=== PATIENT | male | born 1960 | race Caucasian/White ===

== ENCOUNTER 2021-04-09 17:09 | Outpatient (REF) | payer MEDICARE, SELFPAY ==
[2021-04-09 20:34] LABS: HGB 12.9 g/dL (13.5-17.5); MCH 38.2 pg (27.0-33.0); MCHC 35.8 % (32.0-36.0); MCV 106.5 fL (80-95); MPV 10.6 fL (8.0-11.0); Platelet Count 128 10^3/uL (130-400); RBC 3.38 10^6/uL (4.36-5.78); RDW 14.3 % (11.8-14.1); RDW-SD 55.3 fL
[2021-04-09 21:03] LABS: ALT 27 U/L (16-63); AST 20 U/L (15-37); Alkaline Phosphatase 126 U/L (46-116); Anion Gap 8.4 mmol/L (3-11); BUN 18 mg/dL (7-18); CO2 28.6 mmol/L (21.0-32.0); CREATININE 0.8 mg/dL (0.70-1.30); Calcium 8.8 mg/dL (8.5-10.1); Calculated LDL 88 mg/dL (<100); Chloride 103 mmol/L (98-107); Cholesterol 149 mg/dL (<200); Glucose 131 mg/dL (74-106); HDL Cholesterol 40 mg/dL (40-60); Potassium 4.1 mmol/L (3.5-5.1); Sodium 140 mmol/L (136-145); TSH 2.44 uIU/mL (0.36-3.74); Triglyceride 107 mg/dL (<150)
[2021-04-09 21:09] LABS: Abs Immature Grans 0.03 10^3/uL (0.0-0.06); Absolute Basophil Count 0.03 10^3/uL (0.0-0.2); Absolute Eosinophil Count 0.18 10^3/uL (0.0-0.7); Absolute Lymphocyte Count 1.34 10^3/uL (1.2-3.4); Absolute Monocyte Count 0.31 10^3/uL (0.1-0.8); Absolute Neutrophil Count 3.73 10^3/uL (1.2-6.7); Basophils % 0.5; Eosinophils % 3.2; Immature Grans % 0.5; Lymphocytes % 23.8; Monocytes % 5.5; Neutrophils % 66.5; Nucleated RBC 0 %
== END 2021-04-09 17:10 | disposition home or self-care (01) ==
LOC: LBN 17:09
PROVIDERS: PCP Nurse Practitioner Adult Health; Visit Provider Nurse Practitioner Family
DX: F41.8 Other specified anxiety disorders (principal); I10 Essential (primary) hypertension; R53.83 Other fatigue
CPT/HCPCS: 80053; 80061; 85027; 84443; 85025

== ENCOUNTER 2021-06-12 19:15 | Outpatient (REF) | payer MEDICARE, SELFPAY ==
[2021-06-12 15:10] LABS: Abs Immature Grans 0.03 10^3/uL (0.0-0.06); Absolute Basophil Count 0.02 10^3/uL (0.0-0.2); Absolute Eosinophil Count 0.22 10^3/uL (0.0-0.7); Absolute Lymphocyte Count 1.19 10^3/uL (1.2-3.4); Absolute Monocyte Count 0.25 10^3/uL (0.1-0.8); Absolute Neutrophil Count 3.42 10^3/uL (1.2-6.7); Basophils % 0.4; Eosinophils % 4.3; HCT 30.8 % (40.0-50.0); Immature Grans % 0.6; Lymphocytes % 23.2; MCH 40.7 pg (27.0-33.0); MCHC 35.7 % (32.0-36.0); MCV 114.1 fL (80-95); MPV 11.6 fL (8.0-11.0); Monocytes % 4.9; Neutrophils % 66.6; Platelet Count 140 10^3/uL (130-400); RDW 16.9 % (11.8-14.1); RDW-SD 70.9 fL; WBC 5.13 10^3/uL (4.4-10.8)
[2021-06-12 15:25] LABS: Iron 100 ug/dL (65-175); Total Iron Binding Capacity 274 ug/dL (250-450); Transferrin Sat 36 % (20-55)
[2021-06-12 15:50] LABS: ALT 24 U/L (16-63); AST 22 U/L (15-37); Albumin 3.8 g/dL (3.4-5.0); Alkaline Phosphatase 128 U/L (46-116); Anion Gap 5.6 mmol/L (3-11); BUN 19 mg/dL (7-18); Bilirubin, Total 0.7 mg/dL (0.2-1.0); CO2 28.4 mmol/L (21.0-32.0); CREATININE 0.8 mg/dL (0.70-1.30); Calcium 8.3 mg/dL (8.5-10.1); Chloride 104 mmol/L (98-107); Glucose 205 mg/dL (74-106); Potassium 4.1 mmol/L (3.5-5.1); Sodium 138 mmol/L (136-145); Total Protein 6.2 g/dL (6.4-8.2)
[2021-06-12 15:52] LABS: Folate > 20.0 ng/mL (8.6-20.0); Vitamin B12 < 80 pg/mL (193-986)
[2021-06-12 16:15] LABS: NT-proBNP 82 pg/mL (<300)
[2021-06-12 16:23] LABS: Anisocytosis 1+; Diff Comment RBC Morph Reviewed
[2021-06-12 16:24] LABS: Basophilic Stippling 1+; Macrocytosis 3+; Polychromasia Present
[2021-06-13 10:08] LABS: HIV-1/2 Ag & Ab Screen Negative (Negative)
== END 2021-06-12 19:16 | disposition home or self-care (01) ==
LOC: NCHCN 19:15
PROVIDERS: Nurse Practitioner Family; PCP Nurse Practitioner Adult Health; Visit Provider Family Medicine
DX: D64.9 Anemia, unspecified (principal); R53.83 Other fatigue; R27.8 Other lack of coordination; R06.09 Other forms of dyspnea; I45.10 Unspecified right bundle-branch block; Z11.4 Encounter for screening for human immunodeficiency virus [HIV]
CPT/HCPCS: 80053; 87389; 82607; 82746; 83540; 83550; 83880; 85025

== ENCOUNTER 2021-07-01 01:39 | Outpatient (CLI) | payer MEDICARE, SELFPAY ==
--- NOTE | 2021-07-01 | DI.NM_ITS ---
APPROVED REPORT Exam: Exercise Treadmill Patient Location: Out-Patient Room/Bed: Stress Nurse: Lupe Mccall RN Ordering Provider:CARIE ELLY, Contact Number: [phone] BMI: 32.77 Baseline Rhythm: Sinus Rhythm Comment: RBBB and LAFB Indications: Dyspnea on exertion, Right Bundle Branch Block Medical History Medical History: Hypertension (history of), smoker (former), glaucoma Cardiac Medications: Timolol Allergies: NKA Cardiac Risk Factors: Hypertension (history of), smoker (former), family hx Previous Cardiac Procedures: None Pretest Chest Pain Characteristics: None Exercise History: Physically active Physical Disabilities: None Lung Sounds: Clear to auscultation Heart Sounds: Regular Stress Test Details Test: Exercise stress testing was performed using a Marcell protocol. Nuclear Acquisition: Rest Tc-99m/Stress Tc-99m 1 day Rest Isotope: Tc-99m Sestamibi. Dose: 10.6 Date: 07/01/2021 Injection Time: 0915 Stress Isotope: Tc-99m Sestamibi. Dose: 33.5 Date: 07/01/2021 Injection Time: 1122 HR Resting HR Supine: 62 bpm Max Heart Rate (APMHR): 158.500354 bpm Resting HR Standin bpm Target HR (85% APMHR): 134.000927 bpm Max HR Achieved: 145 bpm % of APMHR: 91.77 Recovery HR: 79 bpm HR response to stress: Normal HR response to stress Comment: Timolol held for 12 hrs prior to testing BP Resting BP Supine: 144/78 mmHg Resting BP Standin/70 mmHg Max BP: 212/80 mmHg Recovery BP: 140/72 mmHg BP response to stress: Abnormal hypertensive response to stress. ECG Resting ECG: Sinus Rhythm, RBBB and LAFB Ectopy: None Stress ECG: Sinus Tachycardia, RBBB and LAFB ST Change: No significant ST segment changes noted Arrhythmia: None Recovery ECG: Sinus Rhythm, RBBB and LAFB Recovery ST Change: No significant ST segment changes noted Recovery Arrhythmia: Rare PAC Clinical Reason for Termination: Fatigue, Dyspnea Stress Symptoms: General Fatigue, Dyspnea Exercise duration: 2 min58 sec Highest Stage Reached: Stage 1: 1.7 mph at 10% grade. Exercise capacity: 4.64 METs Angina Score: None Bonner Treadmill Score: 1.1 Rate Pressure Product: [id number] Stress ECG Conclusion 1. The resting electrocardiogram showed right bundle branch block and left anterior fascicular block 2. Patient exercised on the Marcell protocol and completed a workload of 4.64 METS, stopping due to fat igue and shortness of breath 3. Normal blood pressure response to exercise. Rapid heart rate response to exercise suggests decond itioning. Patient achieved 91% of predicted heart rate for age 4. The electrocardiographic portion of the test showed no evidence of myocardial ischemia 5. See MPI report Bonner Treadmill Score is 1.1 which is Moderate risk. Stress Test Summary STAGE Time (mins) Speed (mph) Grade (%) HR BP SYMPTOMS METS Supine 62 144/78 Standing 62 142/70 SpO2 98% 1 3 1.7 10 143 182/84 Moderate SOB, SpO2 96% 4.6 1 min recovery 112 212/80 SOB resolved, SpO2 97% 3 min recovery 79 198/86 SpO2 98% 6 min recovery 79 140/72 SpO2 98% MPI Conclusion Normal myocardial perfusion without ischemia or prior infarction EF 61%, normal wall motion Radiologist Interpretation Radiologist Interpretation by: Romario Nixon MD Interpretation Date/Time: 07/04/2021 13:45:07
--- NOTE | 2021-07-01 18:20 | DI.RAD_ITS ---
Exam(s) XR CHEST 2V PA LATERAL EXAM: XR CHEST 2V PA LATERAL CLINICAL HISTORY: DYSPNEA ON EXERTION, R06.09, RT BUNDLE BRANCH BLOCK, I45.10 TECHNIQUE: 2D digital imaging was performed of the chest. Two images were obtained. PA and lateral views were obtained. COMPARISON: CR CHEST 2 VIEWS PA,LAT from 02/16/2012 FINDINGS: MEDIASTINUM: Normal. HEART: Normal. PULMONARY VASCULATURE: Normal. LUNGS: Clear. PLEURAL SPACE: No pleural effusion or pneumothorax. BONE:Within normal limits for the patient's age. OTHER FINDINGS:Normal. IMPRESSION: No acute pulmonary findings. DATA REPOSITORY: RADIATION DOSE DELIVERED:
== END 2021-07-01 01:59 ==
PROVIDERS: PCP Nurse Practitioner Adult Health; Visit Provider Nurse Practitioner Family
DX: R06.09 Other forms of dyspnea (principal); I45.10 Unspecified right bundle-branch block
CPT/HCPCS: 78452; 93016; 93018; 71046; 93017

== ENCOUNTER 2021-11-15 11:18 | Outpatient (REF) | payer MEDICARE, SELFPAY ==
[2021-11-15 14:52] LABS: Abs Immature Grans 0.03 10^3/uL (0.0-0.06); Absolute Basophil Count 0.06 10^3/uL (0.0-0.2); Absolute Eosinophil Count 0.15 10^3/uL (0.0-0.7); Absolute Lymphocyte Count 1.29 10^3/uL (1.2-3.4); Absolute Monocyte Count 0.59 10^3/uL (0.1-0.8); Absolute Neutrophil Count 6.42 10^3/uL (1.2-6.7); Basophils % 0.7; Eosinophils % 1.8; HCT 45.8 % (40.0-50.0); HGB 15.5 g/dL (13.5-17.5); Immature Grans % 0.4; Lymphocytes % 15.1; MCH 29.1 pg (27.0-33.0); MCHC 33.8 % (32.0-36.0); MCV 86 fL (80-95); MPV 11.3 fL (8.0-11.0); Monocytes % 6.9; Neutrophils % 75.1; Platelet Count 199 10^3/uL (130-400); RBC 5.33 10^6/uL (4.36-5.78); RDW 14.5 % (11.8-14.1); RDW-SD 45.5 fL; WBC 8.54 10^3/uL (4.4-10.8)
[2021-11-15 15:58] LABS: ALT 27 U/L (16-63); AST 18 U/L (15-37); Albumin 4.3 g/dL (3.4-5.0); Alkaline Phosphatase 122 U/L (46-116); Anion Gap 8.2 mmol/L (3-11); BUN 25 mg/dL (7-18); Bilirubin, Total 0.6 mg/dL (0.2-1.0); CO2 29.8 mmol/L (21.0-32.0); CREATININE 0.9 mg/dL (0.70-1.30); Calcium 9.5 mg/dL (8.5-10.1); Chloride 103 mmol/L (98-107); Estimated GFR 95.97 (mL/min/1.73m2); Glucose 131 mg/dL (74-106); Potassium 4.2 mmol/L (3.5-5.1); Sodium 141 mmol/L (136-145); Total Protein 7.2 g/dL (6.4-8.2); Vitamin B12 259 pg/mL (193-986)
[2021-11-18 06:49] LABS: Vitamin D 25 Total 29.7 ng/mL (30-100)
== END 2021-11-15 11:19 | disposition home or self-care (01) ==
LOC: NCHCN 11:18
PROVIDERS: PCP Nurse Practitioner Adult Health; Visit Provider Nurse Practitioner Family
DX: E53.8 Deficiency of other specified B group vitamins (principal)
CPT/HCPCS: 80053; 82306; 82607; 85025

== ENCOUNTER 2021-12-19 15:11 | Outpatient (REF) | payer MEDICARE, SELFPAY ==
[2021-12-19 15:24] LABS: Abs Immature Grans 0.05 10^3/uL (0.0-0.06); Absolute Basophil Count 0.04 10^3/uL (0.0-0.2); Absolute Eosinophil Count 0.23 10^3/uL (0.0-0.7); Absolute Monocyte Count 0.91 10^3/uL (0.1-0.8); Absolute Neutrophil Count 7.26 10^3/uL (1.2-6.7); Basophils % 0.4; Eosinophils % 2.4; HCT 45.7 % (40.0-50.0); HGB 15.5 g/dL (13.5-17.5); Immature Grans % 0.5; Lymphocytes % 12.4; MCH 29.8 pg (27.0-33.0); MCHC 33.9 % (32.0-36.0); MCV 88 fL (80-95); Monocytes % 9.4; Neutrophils % 74.9; RBC 5.21 10^6/uL (4.36-5.78); RDW 13.9 % (11.8-14.1); RDW-SD 45.5 fL; WBC 9.69 10^3/uL (4.4-10.8)
[2021-12-19 16:24] LABS: ALT 26 U/L (16-63); AST 18 U/L (15-37); Albumin 3.9 g/dL (3.4-5.0); Alkaline Phosphatase 147 U/L (46-116); Anion Gap 9.4 mmol/L (3-11); BUN 19 mg/dL (7-18); Bilirubin, Total 0.6 mg/dL (0.2-1.0); CO2 27.6 mmol/L (21.0-32.0); CREATININE 0.8 mg/dL (0.70-1.30); Calcium 9.1 mg/dL (8.5-10.1); Chloride 104 mmol/L (98-107); Estimated GFR 99.44 (mL/min/1.73m2); Glucose 126 mg/dL (74-106); Potassium 4.1 mmol/L (3.5-5.1); Sodium 141 mmol/L (136-145); Vitamin B12 219 pg/mL (193-986)
== END 2021-12-19 15:12 | disposition home or self-care (01) ==
LOC: NCHCN 15:11
PROVIDERS: PCP Nurse Practitioner Adult Health; Visit Provider Nurse Practitioner Family
DX: E53.8 Deficiency of other specified B group vitamins (principal); I10 Essential (primary) hypertension; D64.9 Anemia, unspecified
CPT/HCPCS: 80053; 82607; 85025